=== PATIENT | female | born 1975 | race Caucasian/White ===

== ENCOUNTER → 2017-01-10 | Outpatient (CLI) | payer BC ==
[~2017-01-10] MED LIST: FLEXERIL 1010 MG/TAB; INDERAL80 MG PO; LIALDA 1.2 GM1.2 GM PO; MINOCYCLIN100 MG/CAP PO; NORCO 325 MG-7.1 TAB PO; PERCOCET 325 MG1 TA2 PO; SEASONALE 30 MC1 TAB PO
== END ==
LOC: MC.RAD 07:00
DX: Z12.31 Encounter for screening mammogram for malignant neoplasm of breast (principal)

== ENCOUNTER → 2021-12-07 | Outpatient (CLI) | payer BC | LOC: MC.RAD 10:15 | DX: Z12.31 Encounter for screening mammogram for malignant neoplasm of breast (principal) ==

== ENCOUNTER 2023-01-26 07:45 | Outpatient (RCR) | payer BC ==
[~2023-01-26] VITALS: Ht 170.2 cm; Wt 72.3 kg
[2023-01-26 08:30] VITALS: BP 126/82; PULSE 90; TEMP 98.7
[2023-01-26] MEDS ORDERED: VENOFER IV (08:43)
--- NOTE | 2023-01-26 09:20 | NUR ---
Pt tolerated infusion and monitoring period without issue. No s/s of medication reaction. Teena pt education packet printed and given to pt. She exits dept with steady gait.
== END 2023-01-31 | disposition home or self-care (01) ==
LOC: EUO
DX: R74.8 Abnormal levels of other serum enzymes (principal)
CPT/HCPCS: J1756

== ENCOUNTER → 2023-02-01 | Outpatient (CLI) | payer BC ==
[~2023-02-01] MED LIST changes: +VENOFER IV
== END ==
LOC: COL.RAD 11:02
DX: R74.8 Abnormal levels of other serum enzymes (principal)

== ENCOUNTER 2024-02-01 14:55 | Outpatient (RCR) | payer BC ==
[2024-02-01 15:04] VITALS: BP 120/69; PULSE 80; TEMP 98.1
[2024-02-01] MEDS ORDERED: Iron Sucrose 200 MG in NS 100 ML Over 15 minutes (5 doses/14 Days) IV SCH (15:15)
== END 2024-02-01 15:42 | disposition home or self-care (01) ==
LOC: EUO 14:55
DX: D50.9 Iron deficiency anemia, unspecified (principal); N92.0 Excessive and frequent menstruation with regular cycle
CPT/HCPCS: J1756